=== PATIENT | female | born 1980 | race Caucasian/White ===

== ENCOUNTER 2016-06-01 19:56 | Emergency (ER) | payer OTHER, BC ==
[2016-06-01 20:05] VITALS: BP 125/72; PULSE 100; TEMP 98.3; BMI 23.5
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
== END 2016-06-01 21:13 | disposition home or self-care (01) ==
LOC: FER 19:56
DX: S16.1XXA Strain of muscle, fascia and tendon at neck level, initial encounter (principal); V43.52XA Car driver injured in collision with other type car in traffic accident, initial encounter; Y93.89 Activity, other specified; Y92.410 Unspecified street and highway as the place of occurrence of the external cause; F17.210 Nicotine dependence, cigarettes, uncomplicated
CPT/HCPCS: 99281-25